=== PATIENT | female | born 1970 | race Caucasian/White ===

== ENCOUNTER 2017-01-01 14:14 | Emergency (ER) | payer MEDICAID ==
[~2017-01-01] VITALS: Ht 157.5 cm; Wt 75.0 kg
[~2017-01-01 14:14] MED LIST: CARA1TAB6 PO; ESTR0.5T PO; FLUT50SP EACH NARE; LURA1TAB2 PO; MIRTA15 PO; MULT1TAB99 PO; PROG100C PO; ZYRT10CA PO
[2017-01-01 14:19] VITALS: BP 135/99; PULSE 104; RESP 17; TEMP 98.4; O2SAT 98
[2017-01-01] MEDS ORDERED: SODIUM CHLOR 0.9% 1000 ML INJ 1,000 ML IV SCH (14:55)
[2017-01-01] MEDS ORDERED: DESV25TA PO (15:00)
[2017-01-01] MEDS ORDERED: KETOROLAC TROMETHAMINE 30 MG/ML (IVP) VIAL IVP ONE (15:00)
[2017-01-01] MEDS ORDERED: ASPI81CH CHEW (15:00)
[2017-01-01] MEDS ORDERED: MORPHINE SULFATE 4 MG/ML INJ IV PUSH ONE (15:00)
[2017-01-01] MEDS ORDERED: TIZA2TAB PO (15:00)
[2017-01-01] MEDS ORDERED: SODIUM CHLORIDE 0.9% FLUSH 10 ML FLUSH IV FLUSH PRN (15:00)
[2017-01-01] MEDS ORDERED: ONDANSETRON HCL 4 MG/2 ML VIAL IVP ONE (15:00)
--- NOTE | 2017-01-01 15:03 | PD ---
HPI Chief Complaint: Complaint Time Seen by Provider: 14:51 Travel History International Travel<30 days: No Contact w/Intl Traveler<30days: No Traveled to known affect area: No History of Present Illness HPI The patient is a 46-year-old female who presents to the emergency department with 3 days of lower pelvic pain occasionally radiates to lower aspect of the back. The pain is intermittent, sharp, crampy, and not associated with any dysuria, frequency, urgency, vaginal bleeding, or vaginal discharge. The patient does note a two-year history of irregular menstrual cycle secondary to perimenopausal state, denies . She does have a history of prior sections, denies any known history of diverticulitis or pancreatitis. The patient denies any assisted fever, chills, or sweats. She does complain of mild nausea without any vomiting. The patient does have a history of loose bowel movements is followed by gastroenterology, however, denies any change in bowel movements recently. The patient's symptoms are moderate, there are no current alleviating or exacerbating factors. PFSH Past Medical History Diminished Hearing: No GERD: Yes Neurologic: Yes (BULGING DISC, CHRONIC BACK PAIN) Migraines: Yes ?: Not LMP: 12/19/16 : 4 Para: 2 Miscarriage: 1 : 1 Dilation and Curettage (D&C): Yes Tubal Ligation: Yes Past Surgical History Section: Yes (X2) Eye Surgery: Yes (LASER FOR GLAUCOMA) Other Surgery: Yes (CARPAL TUNNEL) Social History Alcohol Use: Yes (OCC) Tobacco Use: Yes (1 PPD) Substance Use: No Allergies-Medications (Allergen,Severity, Reaction): Coded Allergies: acetaminophen (Unverified Allergy, Unknown, 11/30/16) animal dander (Unverified Allergy, Unknown, 11/30/16) house dust (Unverified Allergy, Unknown, 11/30/16) propoxyphene (Unverified Allergy, Unknown, 11/30/16) codeine (Unverified Adverse Reaction, Intermediate, Nausea/Vomiting, ) Reported Meds & Prescriptions Reported Meds & Active Scripts Active Fluticasone Nasal Grace 50 Mcg/Act Naspr 50 Mcg EACH NARE BID 50 mcg/spray Zyrtec Allergy (Cetirizine HCl) 10 Mg Cap 10 Mg PO DAILY Progesterone Micronized 100 Mg Cap 100 Mg PO DAILY Estradiol 0.5 Mg Tab 0.5 Mg PO DAILY Reported Tizanidine (Tizanidine HCl) 2 Mg Tab 2 Mg PO TID Pristiq 24 HR (Desvenlafaxine ER 24 HR) 25 Mg Tab 25 Mg PO DAILY Aspirin 81 Mg Chew 81 Mg CHEW DAILY Hair Skin and Nails Formu (Multiple Vitamins W/ Minerals) 1 Tab Tab PO ONCE Carafate (Sucralfate) 1 Gm Tab 11 Gm PO 5 TIMES A DAY On empty stomach Review of Systems Except as stated in HPI: all other systems reviewed are Neg General / Constitutional: No: Fever Cardiovascular: No: Chest Pain or Discomfort Respiratory: No: Shortness of Breath Gastrointestinal: Positive: Nausea, Abdominal Pain, No: Vomiting, Diarrhea, Constipation, Changes in Bowel Habits, Loss of Appetite Genitourinary: Positive: Pelvic Pain, No: Urgency, Frequency, Dysuria, Hematuria, Discharge, Vaginal Bleeding Physical Exam Narrative GENERAL: Awake, alert, pleasant 46-year-old female who appears her stated age and is in no acute respiratory distress. SKIN: Focused skin assessment warm/dry. HEAD: Atraumatic. Normocephalic. EYES: Pupils equal and round. No scleral icterus. No injection or drainage. ENT: No nasal bleeding or discharge. Mucous membranes pink and moist. NECK: Trachea midline. No JVD. CARDIOVASCULAR: Regular rate and rhythm. No murmur appreciated. RESPIRATORY: No accessory muscle use. Clear to auscultation. Breath sounds equal bilaterally. GASTROINTESTINAL: Abdomen soft, tender palpation in the suprapubic and lower quadrants bilaterally. No epigastric tenderness. No rebound tenderness, guarding, or rigidity. Back: No CVA tenderness. MUSCULOSKELETAL: No obvious deformities. No clubbing. No cyanosis. No edema. NEUROLOGICAL: Awake and alert. No obvious cranial nerve deficits. Motor grossly within normal limits. Normal speech. PSYCHIATRIC: Appropriate mood and affect; insight and judgment normal. Data Data Last Documented VS Vital Signs Date Time Temp Pulse Resp B/P (MAP) Pulse Ox O2 Delivery O2 Flow Rate FiO2 01/01/17 14:19 98.4 104 17 135/99 (111) 98 Orders Orders Urinalysis - C+S If Indicated (01/01/17 14:25) Complete Blood Count With Diff (01/01/17 14:55) Comprehensive Metabolic Panel (01/01/17 14:55) Lipase (01/01/17 14:55) Iv Access Insert/Monitor (01/01/17 14:55) Ecg Monitoring (01/01/17 14:55) Oximetry (01/01/17 14:55) Morphine Inj (Morphine Inj) (01/01/17 15:00) Ondansetron Inj (Zofran Inj) (01/01/17 15:00) Sodium Chlor 0.9% 1000 Ml Inj (Ns 1000 M (01/01/17 14:55) Sodium Chloride 0.9% Flush (Ns Flush) (01/01/17 15:00) Ketorolac Inj (Toradol Inj) (01/01/17 15:00) Ct Abd/Pel W/O Iv Contrast (01/01/17 ) Ciprofloxacin (Cipro) (01/01/17 16:30) Metronidazole 500 Mg Inj (Flagyl 500 Mg (01/01/17 16:30) Labs Laboratory Tests Test 01/01/17 14:30 01/01/17 15:12 Urine Color YELLOW Urine Turbidity HAZY Urine pH 6.0 Urine Specific [place] 1.025 Urine Protein TRACE mg/dL Urine Glucose (UA) NEG mg/dL Urine Ketones TRACE mg/dL Urine Occult Blood NEG Urine Nitrite NEG Urine Bilirubin NEG Urine Urobilinogen 2.0 MG/DL Urine Leukocyte Esterase TRACE Urine RBC 2 /hpf Urine WBC 1 /hpf Urine Squamous Epithelial Cells 6 /hpf Urine Calcium Oxalate Crystals MOD /hpf Urine Bacteria OCC /hpf Urine Mucus FEW /lpf Microscopic Urinalysis Comment CULT NOT INDICATED White Blood Count 12.6 TH/MM3 Red Blood Count 4.74 MIL/MM3 Hemoglobin 16.1 GM/DL Hematocrit 44.6 % Mean Corpuscular Volume 94.2 FL Mean Corpuscular Hemoglobin 33.9 PG Mean Corpuscular Hemoglobin Concent 36.0 % Red Cell Distribution Width 13.6 % Platelet Count 278 TH/MM3 Mean Platelet Volume 10.2 FL Neutrophils (%) (Auto) 69.1 % Lymphocytes (%) (Auto) 22.1 % Monocytes (%) (Auto) 6.4 % Eosinophils (%) (Auto) 2.0 % Basophils (%) (Auto) 0.4 % Neutrophils # (Auto) 8.7 TH/MM3 Lymphocytes # (Auto) 2.8 TH/MM3 Monocytes # (Auto) 0.8 TH/MM3 Eosinophils # (Auto) 0.2 TH/MM3 Basophils # (Auto) 0.0 TH/MM3 CBC Comment AUTO DIFF [facility] Medical Decision Making Medical Screen Exam Complete: Yes Emergency Medical Condition: Yes Medical Record Reviewed: Yes Interpretation(s) Last Impressions Abdomen/Pelvis CT 01/01/17 0000 Signed Impressions: Service Date/Time: Sunday, January 01, 2017 15:47 - CONCLUSION: 1. Findings consistent with acute sigmoid diverticulitis. No evidence for abscess at this time. Jose Mcdaniel MD Laboratory Tests Test 01/01/17 14:30 01/01/17 15:12 Urine Color YELLOW Urine Turbidity HAZY Urine pH 6.0 Urine Specific [place] 1.025 Urine Protein TRACE mg/dL Urine Glucose (UA) NEG mg/dL Urine Ketones TRACE mg/dL Urine Occult Blood NEG Urine Nitrite NEG Urine Bilirubin NEG Urine Urobilinogen 2.0 MG/DL Urine Leukocyte Esterase TRACE Urine RBC 2 /hpf Urine WBC 1 /hpf Urine Squamous Epithelial Cells 6 /hpf Urine Calcium Oxalate Crystals MOD /hpf Urine Bacteria OCC /hpf Urine Mucus FEW /lpf Microscopic Urinalysis Comment CULT NOT INDICATED White Blood Count 12.6 TH/MM3 Red Blood Count 4.74 MIL/MM3 Hemoglobin 16.1 GM/DL Hematocrit 44.6 % Mean Corpuscular Volume 94.2 FL Mean Corpuscular Hemoglobin 33.9 PG Mean Corpuscular Hemoglobin Concent 36.0 % Red Cell Distribution Width 13.6 % Platelet Count 278 TH/MM3 Mean Platelet Volume 10.2 FL Neutrophils (%) (Auto) 69.1 % Lymphocytes (%) (Auto) 22.1 % Monocytes (%) (Auto) 6.4 % Eosinophils (%) (Auto) 2.0 % Basophils (%) (Auto) 0.4 % Neutrophils # (Auto) 8.7 TH/MM3 Lymphocytes # (Auto) 2.8 TH/MM3 Monocytes # (Auto) 0.8 TH/MM3 Eosinophils # (Auto) 0.2 TH/MM3 Basophils # (Auto) 0.0 TH/MM3 CBC Comment AUTO DIFF Differential Diagnosis Differential diagnosis includes UTI, pyelonephritis, diverticulitis, cervicitis , PID, , constipation. Narrative Course IV was established, labs are drawn and sent, and the patient was placed on cardiac telemetry monitoring and continuous pulse oximetry monitoring. 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 UA was sent to lab. Diagnosis Primary Impression: Sigmoid diverticulitis Patient Instructions: General Instructions Additional Instructions: Medications as directed. Follow-up with your primary physician. Return if symptoms worsen or progress. Please provide a patient a copy of her CT results and lab results at discharge. Med/Other Pt SpecificInfo: Prescription(s) given Scripts Hydrocodone-Acetaminophen ([place]) 5-325 mg Tab 1 TAB PO Q6H Y for PAIN, #15 TAB 0 Refills Prov: Jordan Arguelles MD 01/01/17 Metronidazole (Flagyl) 500 Mg Tab 500 MG PO BID for Infection for 7 Days, #14 TAB 0 Refills Prov: Jordan Arguelles MD 01/01/17 Ciprofloxacin (Cipro) 500 Mg Tab 500 MG PO BID for Infection for 7 Days, #14 TAB 0 Refills Prov: Jordan Arguelles MD 01/01/17 Disposition: 01 DISCHARGE HOME Condition: Stable Jordan Arguelles MD Jan 01, 2017 15:03
[2017-01-01 15:32] LABS: BACTERIA, URINE OCC /hpf; BLOOD, URINE NEG (NEG); CALCIUM OXALATE CRYSTALS,URINE MOD /hpf; COMMENT (UR) CULT NOT INDICATED; CULTURE IF INDICATED CULT NOT INDICATED; GLUCOSE,URINE NEG (NEG); KETONE, URINE TRACE mg/dL (NEG); MUCUS URINE FEW /lpf (OCC); NITRITE,URINE NEG (NEG); SQUAMOUS EPITHELIAL CELL URINE 6 /hpf (0-5); URINE COLOR YELLOW (YELLW/STRAW)
[2017-01-01 15:48] LABS: AUTOMATED NEUTROPHIL # 8.7 TH/MM3 (1.8-7.7); BASOPHIL % 0.4 % (0.0-2.0); EOSINOPHIL # 0.2 TH/MM3 (0-0.4); HEMATOCRIT 44.6 % (35.0-46.0); LYMPH % 22.1 % (9.0-44.0); LYMPHOCYTE # 2.8 TH/MM3 (1.0-4.8); MEAN CELL VOLUME 94.2 FL (80.0-100.0); MEAN CORPUSCULAR HEMOGLOBIN 33.9 PG (27.0-34.0); MONO % 6.4 % (0.0-8.0); NEUT % 69.1 % (16.0-70.0); PLATELET COUNT 278 TH/MM3 (150-450); RED BLOOD COUNT 4.74 MIL/MM3 (4.00-5.30); RED CELL DISTRIBUTION WIDTH 13.6 % (11.6-17.2); WHITE BLOOD COUNT 12.6 TH/MM3 (4.0-11.0)
[2017-01-01 15:51] LABS: HEMO FLAGS AUTO DIFF
--- NOTE | 2017-01-01 16:15 | RADRPT ---
EXAM DATE/TIME: 01/01/2017 15:47 [place] COMPARISON: CT ABDOMEN & PELVIS W/O CONTRAST, March 09, 2013, 23:55. INDICATIONS : Lower abdomen pain for three days. ORAL CONTRAST: No oral contrast ingested. RADIATION DOSE: 9.96 CTDIvol (mGy) MEDICAL HISTORY : Cardiovascular disease. Renal calculi. Barrets esophagus SURGICAL HISTORY : Tubal ligation. ENCOUNTER: Initial ACUITY: 3 days PAIN SCALE: 5/10 LOCATION: Bilateral lower quadrant abdomen TECHNIQUE: Volumetric scanning of the abdomen and pelvis was performed. Using automated exposure control and ad justment of the mA and/or kV according to patient size, radiation dose was kept as low as reasonably achievable to obtain optimal diagnostic quality images. DICOM format image data is available electro nically for review and comparison. FINDINGS: LOWER LUNGS: The visualized lower lungs are clear. LIVER: Redemonstration of 3.3 x 3.2 cm cyst near the dome of the liver. Stable subcentimeter cystic lesion i n segment 4 of the liver. There is otherwise unremarkable without significant intrahepatic ductal dil atation. Gallbladder is unremarkable by CT. SPLEEN: Normal size without lesion. PANCREAS: Within normal limits. KIDNEYS: Kidneys are symmetrical in size. No significant radiopaque renal calculi or hydronephrosis. ADRENAL GLANDS: Within normal limits. VASCULAR: There is no aortic aneurysm. BOWEL/MESENTERY: Mild sigmoid diverticulosis. There is inflammatory stranding adjacent to the sigmoid colon with small foci of extraluminal air in this region. No focal drainable fluid collection at this time. Bowel oth erwise appears unremarkable without evidence for obstruction. ABDOMINAL WALL: Within normal limits. RETROPERITONEUM: There is no lymphadenopathy. BLADDER: No wall thickening or mass. REPRODUCTIVE: Within normal limits. INGUINAL: There is no lymphadenopathy or hernia. MUSCULOSKELETAL: Within normal limits for patient age. CONCLUSION: 1. Findings consistent with acute sigmoid diverticulitis. No evidence for abscess at this time. Jose Mcdaniel MD on January 01, 2017 at 16:08 Board Certified Radiologist. This report was verified electronically.
[2017-01-01 16:30] VITALS: RESP 20; O2SAT 100
[2017-01-01] MEDS ORDERED: CIPROFLOXACIN 500 MG TAB PO ONE (16:30)
[2017-01-01] MEDS ORDERED: metroNIDAZOLE 500 MG INJ 100 ML IV ONE (16:30)
[2017-01-01] MEDS ORDERED: NORC5TAB PO (16:43)
[2017-01-01] MEDS ORDERED: CIPR-9 PO (16:43)
[2017-01-01] MEDS ORDERED: METR-1 PO (16:43)
[2017-01-01 17:13] LABS: PLATELET ESTIMATE SMEAR NORMAL (NORMAL); PLATELET MORPHOLOGY NORMAL (NORMAL)
[2017-01-01 17:26] LABS: SCAN/DIFF AUTO DIFF CONFIRMED
[2017-01-01 17:27] VITALS: BP 128/89; PULSE 88; RESP 15; O2SAT 98
[2017-01-01 17:30] LABS: ALT (GPT) 30 U/L (10-53); ANION GAP 8 MEQ/L (5-15); AST (GOT) 16 U/L (15-37); BICARBONATE 24.4 MEQ/L (21.0-32.0); BLOOD UREA NITROGEN 6 MG/DL (7-18); CHLORIDE 112 MEQ/L (98-107); GLOMERULAR FILTRATION RATE 89 ML/MIN (>89); POTASSIUM 3.5 MEQ/L (3.5-5.1); SODIUM (NA) 144 MEQ/L (136-145)
[2017-01-01 17:32] LABS: ALKALINE PHOSPHATASE 94 U/L (45-117); TOTAL BILIRUBIN ADULT 0.4 MG/DL (0.2-1.0)
--- NOTE | 2017-01-01 17:34 | PD ---
Physical Exam Narrative Patient was seen by ED physician and signed out to me. Data Data Last Documented VS Vital Signs Date Time Temp Pulse Resp B/P (MAP) Pulse Ox O2 Delivery O2 Flow Rate FiO2 01/01/17 17:27 88 15 128/89 (102) 98 01/01/17 16:30 Room Air 01/01/17 14:19 98.4 Orders Orders Urinalysis - C+S If Indicated (01/01/17 14:25) Complete Blood Count With Diff (01/01/17 14:55) Comprehensive Metabolic Panel (01/01/17 14:55) Lipase (01/01/17 14:55) Iv Access Insert/Monitor (01/01/17 14:55) Ecg Monitoring (01/01/17 14:55) Oximetry (01/01/17 14:55) Morphine Inj (Morphine Inj) (01/01/17 15:00) Ondansetron Inj (Zofran Inj) (01/01/17 15:00) Sodium Chlor 0.9% 1000 Ml Inj (Ns 1000 M (01/01/17 14:55) Sodium Chloride 0.9% Flush (Ns Flush) (01/01/17 15:00) Ketorolac Inj (Toradol Inj) (01/01/17 15:00) Ct Abd/Pel W/O Iv Contrast (01/01/17 ) Ciprofloxacin (Cipro) (01/01/17 16:30) Metronidazole 500 Mg Inj (Flagyl 500 Mg (01/01/17 16:30) Labs Laboratory Tests Test 01/01/17 14:30 01/01/17 15:12 01/01/17 16:22 Urine Color YELLOW Urine Turbidity HAZY Urine pH 6.0 Urine Specific [place] 1.025 Urine Protein TRACE mg/dL Urine Glucose (UA) NEG mg/dL Urine Ketones TRACE mg/dL Urine Occult Blood NEG Urine Nitrite NEG Urine Bilirubin NEG Urine Urobilinogen 2.0 MG/DL Urine Leukocyte Esterase TRACE Urine RBC 2 /hpf Urine WBC 1 /hpf Urine Squamous Epithelial Cells 6 /hpf Urine Calcium Oxalate Crystals MOD /hpf Urine Bacteria OCC /hpf Urine Mucus FEW /lpf Microscopic Urinalysis Comment CULT NOT INDICATED White Blood Count 12.6 TH/MM3 Red Blood Count 4.74 MIL/MM3 Hemoglobin 16.1 GM/DL Hematocrit 44.6 % Mean Corpuscular Volume 94.2 FL Mean Corpuscular Hemoglobin 33.9 PG Mean Corpuscular Hemoglobin Concent 36.0 % Red Cell Distribution Width 13.6 % Platelet Count 278 TH/MM3 Mean Platelet Volume 10.2 FL Neutrophils (%) (Auto) 69.1 % Lymphocytes (%) (Auto) 22.1 % Monocytes (%) (Auto) 6.4 % Eosinophils (%) (Auto) 2.0 % Basophils (%) (Auto) 0.4 % Neutrophils # (Auto) 8.7 TH/MM3 Lymphocytes # (Auto) 2.8 TH/MM3 Monocytes # (Auto) 0.8 TH/MM3 Eosinophils # (Auto) 0.2 TH/MM3 Basophils # (Auto) 0.0 TH/MM3 CBC Comment AUTO DIFF Differential Comment AUTO DIFF CONFIRMED Platelet Estimate NORMAL Platelet Morphology Comment NORMAL Red Cell Morphology Comment NORMAL Blood Urea Nitrogen 6 MG/DL Creatinine 0.71 MG/DL Random Glucose 86 MG/DL Total Protein 6.8 GM/DL Albumin 3.6 GM/DL Calcium Level 8.3 MG/DL Alkaline Phosphatase 94 U/L Aspartate Amino Transf (AST/SGOT) 16 U/L Alanine Aminotransferase (ALT/SGPT) 30 U/L Total Bilirubin 0.4 MG/DL Sodium Level 144 MEQ/L Potassium Level 3.5 MEQ/L Chloride Level 112 MEQ/L Carbon Dioxide Level 24.4 MEQ/L Anion Gap 8 MEQ/L Estimat Glomerular Filtration Rate 89 ML/MIN Lipase 156 U/L [facility] Supervised Visit with SHERRON: No Interpretation(s) 1733 PM. CBC WBC 12.6. Normal differential. CMP within normal limit. UA positive for calcium oxalate and bacteria. Last Impressions Abdomen/Pelvis CT 01/01/17 0000 Signed Impressions: Service Date/Time: Sunday, January 01, 2017 15:47 - CONCLUSION: 1. Findings consistent with acute sigmoid diverticulitis. No evidence for abscess at this time. Jose Mcdaniel MD Diagnosis Primary Impression: Sigmoid diverticulitis Patient Instructions: General Instructions Additional Instruction: Medications as directed. Follow-up with your primary physician. Return if symptoms worsen or progress. Please provide a patient a copy of her CT results and lab results at discharge. Scripts Hydrocodone-Acetaminophen ([place]) 5-325 mg Tab 1 TAB PO Q6H Y for PAIN, #15 TAB 0 Refills Prov: Jordan Arguelles MD 01/01/17 Metronidazole (Flagyl) 500 Mg Tab 500 MG PO BID for Infection for 7 Days, #14 TAB 0 Refills Prov: Jordan Arguelles MD 01/01/17 Ciprofloxacin (Cipro) 500 Mg Tab 500 MG PO BID for Infection for 7 Days, #14 TAB 0 Refills Prov: Jordan Arguelles MD 01/01/17 Disposition: 01 DISCHARGE HOME Condition: Stable Malik Birmingham MD Jan 01, 2017 17:33
== END 2017-01-01 18:01 | disposition home or self-care (01) ==
LOC: NEPD 14:14
DX: K57.32 Diverticulitis of large intestine without perforation or abscess without bleeding (principal); K21.9 Gastro-esophageal reflux disease without esophagitis; F17.210 Nicotine dependence, cigarettes, uncomplicated
CPT/HCPCS: 74176; 80053; 81001; 83690; 85025; 96361; 96374; 96375; 99285; J1885; J2270; J2405; J7030